=== PATIENT | female | born 1940 | race Caucasian/White ===

== ENCOUNTER 2025-02-09 15:59 | Emergency (ER) | payer MEDICARE, OTHER, SELFPAY ==
[2025-02-09 16:01] VITALS: BP 152/123
[2025-02-09 17:00] VITALS: BP 148/91
[2025-02-09 17:35] LABS: COVID-19 Antigen Negative (Negative)
[2025-02-09] MEDS: VENTOLIN NEBULES 2.5 MG INH (17:51)
[2025-02-09 18:00] VITALS: BP 135/73
[2025-02-09 18:13] LABS: Hematocrit 44.1 % (37.0-47.0); Hemoglobin 14.5 g/dL (12.0-16.0); Mean Corp Hgb Conc. 32.9 g/dL (33.0-37.0); Mean Corpuscular Volume 94.2 fL (81.0-99.0); Nucleated Red Blood Cells % 0 %; Platelet Count 341 10^3/uL (130-400); Red Cell Dist. Width 12.6 % (11.5-14.5)
[2025-02-09 18:24] LABS: ALT (SGPT) 40 U/L (0-35); AST (SGOT) 41 U/L (14-36); Albumin 3.9 g/dl (3.5-5.0); Alkaline Phosphatase 84 U/L (38-126); Blood Urea Nitrogen 15 mg/dl (7-17); Calcium 9.1 mg/dl (8.4-10.2); Carbon Dioxide 27 mmol/L (22-30); Chloride 105 mmol/L (98-107); Glucose 122 mg/dl (70-99); Potassium 4.8 mmol/L (3.5-5.1); Sodium 138 mmol/L (135-145); Total Protein 6.9 g/dl (6.3-8.2); eGFR > 60.00
[2025-02-09 18:35] LABS: Troponin I < 0.012 ng/ml
--- NOTE | 2025-02-09 19:09 | ED.GENMED ---
History of Present Illness
General
Chief Complaint: Cold/Flu/URI Symptoms
Source: patient
Exam Limitations: none
Time Seen by Provider: 02/09/25 17:07
Nursing documentation reviewed up to this point in time: agreed with
History of Present Illness
History of Present Illness:
see MDM
Past History
Past History
ED Past Medical History: Asthma, Hypercholesterolemia and Other (PE. Arthritis, Sleep apnea)
ED Past Surgical History: Cholecystectomy and Gynecological (Hysterectomy)
Social History
Tobacco: Non-smoker
Alcohol: None
Drug: None
Personal: Single
Living: alone
Employment: Retired
Phy Exam
Physical Exam
Physical Exam:
GENERAL: Alert , in no apparent distress
EYE: pupils equal and reactive
NECK: Supple
ENT: b/l TM s clear, no erythema to the pharynx, no tonsillar pharynx erythematous but no tonsillar hypertrophy or exudates
CARDIAC: Regular rate and rhythm, no edema
LUNGS: End expiratory wheezing, diminished, no acute respiratory distress, no /rales/rhonchi, occ cough
ABDOMEN: Soft, without focal tenderness, no r/g, no cvat, normal bowel sounds
NEUROLOGICAL: Alert and oriented, no focal neuro deficits, cranial nerves normal, normal strength and sensation
SKIN: Warm and dry, skin intact.
MUSCULOSKELETAL: No edema, well perfused.
PSYCH: Normal and appropriate interaction. Mildly anxious
Course
Orders/Labs/Results
Orders:
Orders
02/09/25 16:34
CR Chest - 2 Views Urgent
Comment:
Reason For Exam: cough
02/09/25 16:57
COVID-19 Antigen Urgent
Source: Nasal Swab
Influenza A+B Rapid Molecular Urgent
JOSEPH Source: Nasal Swab
Specimen Description:
02/09/25 17:38
Electrocardiogram (*1) Urgent
Reason for Study: Shortness of Breath
EKG- Treatment ONCE
Albuterol Nebs [Ventolin Nebules] 2.5 mg INH R NOW STA
02/09/25 17:51
Complete Blood Count/With Diff Urgent
Comprehensive Metabolic Panel Urgent
Troponin I Urgent
02/09/25 18:59
Urinalysis Reflex To Culture Urgent
Date Specimen was Collected: 02/09/25
Time Specimen was Collected: 18:56
Urine Microscopic Reflex Cult Urgent
02/09/25 19:28
CT Head W/o Iv Contrast Urgent
Comment:
Reason For Exam: head pressure
Abnormal Lab Results
02/09/25 02/09/25
17:51 18:59
WBC 13.5 H 10^3/uL
(4.8-10.8)
MCHC 32.9 L g/dL
(33.0-37.0)
Abs Immat Gran (auto) 0.2 H 10^3/uL
(0-0.05)
Absolute Neuts (auto) 11.7 H 10^3/uL
(1.4-6.5)
Immature Gran % 1.4 H %
(0-0.5)
Neutrophils % 86.4 H %
(42.2-75.2)
Lymphocytes % 10.6 L %
(20.5-51.1)
Monocytes % 1.5 L %
(1.7-9.3)
Glucose 122 H mg/dl
(70-99)
AST 41 H U/L
(14-36)
ALT 40 H U/L
(0-35)
Urine Bacteria (Reflex) Few A
(Negative)
Urine Albumin (Reflex) 1+ A
(Neg - Trace)
02/09/25 17:51
02/09/25 17:51
Vital Signs
Initial and Last Documented VS:
Initial Vital Signs
Temp Pulse Resp BP Pulse Ox
36.6 C 82 18 152/123 95
02/09/25 16:01 02/09/25 16:01 02/09/25 16:01 02/09/25 16:01 02/09/25 16:01
Last Documented Vital Signs
Temp Pulse Resp BP Pulse Ox
36.6 C 72 21 132/79 94
02/09/25 16:01 02/09/25 18:54 02/09/25 18:54 02/09/25 20:00 02/09/25 20:45
MDM/Problems Addressed
Differential Diagnosis Includes:
see MDM
MDM/Problems Addressed:
Note:
CHIEF COMPLAINT(S)
Difficulty breathing, confusion, fatigue, cough, and history of asthma.
HISTORY OF PRESENT ILLNESS
The patient, a female with a history of asthma, presented with symptoms that began during a visit to [place]5 weeks ago, which included difficulty breathing and confusion. The patient attributed the initial symptoms to the high altitude, as she
did not feel well throughout the trip. Upon returning home, the patient experienced worsening symptoms, which prompted a visit to her primary care physician. she was feeling sore throat, congestion, cough, fatigued at the time.
the PCP initially just treated her with cough medicine and steroids.
she went back 4 days ago and says she started an antibiotic and a longer steorid taper for her asthma wheezing which is chronic.
she hasn't felt improved yet fully and she is here b jeremiah trejo called the PCP this morning and they told her to come in.
The patient reported issues with cognition, stating, 'My head and I cant think. Im woozy.' She mentioned feeling wiped out, lightheaded, and having a sensation of brain fog. The patient denied having a sore throat or fever but reported coughing up a
small amount of mucus. She has been taking her albuterol inhaler more frequently, four times a day, due to her asthma symptoms.
She also described numbness in her body and difficulty processing information, stating, 'Its very hard for me to concentrate.' She denied any significant weight loss, but confirmed she has been eating and drinking sufficiently.
The patient has a history of blood clots, specifically embolisms, but is not currently on anticoagulation therapy due to allergies to many medications. She denied taking aspirin. The patients family, including her daughter and sister, noted no
significant changes in her behavior or cognitive function.
SOCIAL DETERMINANTS AFFECTING HEALTH
The patient lives alone and occasionally receives assistance from her family. She has access to a community pharmacy for her medications.
MEDICATIONS
- Antibiotic (unspecified, once daily for six days)
- Steroid taper (Medrol dose pack)
- Albuterol inhaler, increased to four times daily
REVIEW OF SYSTEMS
- Respiratory: Shortness of breath, wheezing
- Neurological: Lightheadedness, confusion, brain fog, difficulty concentrating
- Gastrointestinal: No diarrhea
- Constitutional: Fatigue, feeling wiped out
- Cardiovascular: Occasional chest discomfort, resolved
- Musculoskeletal: Body numbness
PHYSICAL EXAM
Nursing notes reviewed and vital signs reviewed.
-GENERAL: Alert , in no apparent distress seems mildly anxious
EYE: pupils equal and reactive
NECK: Supple
ENT: b/l TM s clear, pharynx nonerythematous but no tonsillar hypertrophy or exudates
CARDIAC: Regular rate and rhythm, no edema
LUNGS: Diminished breath sounds, inspiratory and expiratory wheezing throughout, no tachypnea or respiratory distress
ABDOMEN: Soft, without focal tenderness, no r/g, no cvat, normal bowel sounds
NEUROLOGICAL: Alert and oriented, no focal neuro deficits
SKIN: Warm and dry, skin intact.
MUSCULOSKELETAL: No edema, well perfused.
PSYCH: Normal and appropriate interaction.
PLAN
1. Perform blood work to investigate possible electrolyte imbalances or infection.
2. Conduct a chest X-ray to rule out pneumonia or other respiratory conditions.
3. Administer a breathing treatment for asthma exacerbation.
4. Obtain an Electrocardiogram (EKG) to assess cardiac status.
5. Consider urine testing to evaluate for possible causes of altered mental status.
DIFFERENTIAL DIAGNOSIS
The Differential Diagnosis includes, in no particular order and is not limited to:
1. Asthma exacerbation
2. Altitude sickness
3. Pneumonia
4. Viral bronchitis
5. Sinusitis
6. Pulmonary embolism
7. Electrolyte imbalance
8. Upper respiratory infection
9. Medication side effect
10. Blood clot-related complications
PT IS 84 Y/O F
h/o asthma, no intubations
usually wheezes, uses nebs BID regularly
traveled to and from [place] recently and felt like she was ill, uri sxs vs. altitude, felt some lightheadedness, brain fog
she came home and had a cough that persisted so she saw PCP and got a medrol dose alena
when symptoms didn' really clear up but have improved some, she went back 4 days ago ands ays she was given longer taper steroids and abx (but we do not know what one and cannot see in the external pharmacy history)
she feels fatigued, has brain fog, somet lightheadedness
had a little brief chest discomfort last night that resolved
no leg swelling, no tachycardia
h/o dvt/pe but doesn't tolerate thinners so she isn't anticoagulated
she looks anxius but othewwise well
hassome wheezing on eam without hypoxia
no tachycardia
ekg nonischemic
trop neg
wbc is 13
mild transaminitis
the wbc is likely steroids
the transaminitis could be viral
cxr clear, indep reviewed
pt notified me after testing that her head felt like funny pressure and so screning CT head neg
pt is comfortable going home
suspect viral syndrome/bronchtiis
continue management
wheezing improved
*Pulse Oximetry
SaO2: 93
Oxygen Mode of Delivery: Room air
Patient hypoxic: no (95)
*Critical Care Note
Total Time (30-74mins, 75-104mins- exclusive of procedures): Not Applicable
ED Attending Note
-
Portions of this chart may have been created with voice recognition software.� Occasional wrong word or��sound alike� substitutions may have occurred due to the inherent limitations of voice recognition software.
Discharge Plan
Departure
Patient Disposition: Home (Routine Discharge)
Date of Disposition: 02/09/25
Time of Disposition: 20:33
Patient with high blood pressure during this ER visit?: No
Condition: Fair
Covid-19: Negative COVID-19
Discharge Problem:
Bronchitis
Instructions: Acute Bronchitis, Adult (DC)
Prescriptions:
No Action
montelukast 10 MG tablet
10 mg PO HS
escitalopram oxalate 10 MG tablet
10 mg PO HS
calcium carbonate [Antacid (calcium carbonate)] 1 TABLET tablet,chewable
1 tab PO PRN PRN (Reason: GERD)
fluticasone propionate 1 SPRAY spray,suspension
1 spray intranasal DAILY
Vitamin D3
PO DAILY
budesonide 0.5 MG/2 ML suspension for nebulization
0.5 mg continuous nebulization BID
atorvastatin 10 MG tablet
10 mg PO DAILY
acetaminophen [Tylenol Extra Strength] 500 MG tablet
500 - 1,000 mg PO PRN PRN (Reason: pain)
warfarin [Jantoven] 5 MG tablet
5 mg PO ONCE@1800 Qty: 20 0RF
Referrals:
Gerardo Palafox MD [Family Provider, Family Practice]
Activity Restrictions/Additional Instructions:
Not really sure the cause of your symptoms however your screening tests look pretty reassuring. Your liver markers were a tiny bit elevated which usually indicates a viral illness. Your white count was elevated but this is likely from the
steroids. Your x-ray does not show any pneumonia and your head CT was normal. You had no urinary tract infection. There is no signs of a heart attack. Continue your medications, this could be just some brain fog from the steroids however it is
important to follow-up with your family doctor. Continue your albuterol. Return for any concerns
Interventions
Interventions:
*Risk Screen - Suicide Last Done: 02/09/25 17:06
*General Assessment Last Done: 02/09/25 17:06
*Neglect/Abuse Screening Last Done: 02/09/25 17:06
*ED- Fall Risk Assessment Last Done: 02/09/25 17:06
*ED COVID-19 Vaccine History Last Done: 02/09/25 17:06
*Nursing Disposition Last Done: 02/09/25 20:58
ED- Pulmonary Assessment Last Done: 02/09/25 17:06
Discharge Date and Time
Discharge Date/Time: 02/09/25 20:59
Print Language: CHILEAN
[2025-02-09 19:10] LABS: Urine Character Clear (Clear)
[2025-02-09 19:28] LABS: Urine Red Blood Cell 0-2 /HPF (0-2); Urine Urothelial Cell 0-2 /LPF (FEW); Urine White Cell 0-2 /HPF (0-5)
[2025-02-09 19:49] VITALS: BP 132/58
[2025-02-09 20:00] VITALS: BP 132/79
== END 2025-02-09 20:59 | disposition home or self-care (01) ==
LOC: EMR 15:59
PROVIDERS: Physician Assistant; EMERGENCY PHYSICIAN Student in an Organized Health Care Education/Training Program; FAMILY PHYSICIAN Family Medicine
DX: J40 Bronchitis, not specified as acute or chronic (principal); E78.00 Pure hypercholesterolemia, unspecified; G47.30 Sleep apnea, unspecified; M19.90 Unspecified osteoarthritis, unspecified site; Z86.718 Personal history of other venous thrombosis and embolism; Z88.9 Allergy status to unspecified drugs, medicaments and biological substances
CPT/HCPCS: 99284; 94640; 70450; 71046; 80053; 81003; 81015; 84484; 85025; 87502; 87811; 93005

== ENCOUNTER → 2025-02-16 17:00 | Outpatient (REF) | payer MEDICARE, OTHER, SELFPAY | LOC: RAD 17:00 | PROVIDERS: ATTENDING PHYSICIAN Family Medicine; FAMILY PHYSICIAN Family Medicine | DX: R06.02 Shortness of breath (principal); Z86.711 Personal history of pulmonary embolism | CPT/HCPCS: 71275; Q9967 ==

== ENCOUNTER → 2025-03-08 14:48 | Outpatient (REF) | payer MEDICARE, OTHER, SELFPAY | LOC: RCS 14:48 | PROVIDERS: ATTENDING PHYSICIAN Nurse Practitioner Family; FAMILY PHYSICIAN Family Medicine | DX: R06.00 Dyspnea, unspecified (principal) | CPT/HCPCS: 93306 ==